=== PATIENT | male | born 1935 | race Caucasian/White ===

== ENCOUNTER 2017-01-14 01:35 | Inpatient (IN) | payer MEDICARE, BC ==
[~2017-01-14] VITALS: Ht 175.3 cm; Wt 78.9 kg
[~2017-01-14 01:35] MED LIST: ASCO1TAB4 PO; ATOR10TA9 PO; ATOR20TA9 PO; CHOL20002 PO; DIGO125T PO; DIGO125T6 PO; DILT180C72 PO; FINA1TAB16 PO; FINA5TAB4 PO; FURO20TA3 PO; HYDR-882 PO; HYDR25TA6 PO; ISOS30TA8 PO; LEVO25TA4 PO; MECL-76 PO; METO-95 PO; METO25TA4 PO; NITR0.4T8 SL; ONDA4TAB13 SL; PANT40TA3 PO; RABE20TA26 PO; RIVA10TA PO; RIVA20TA PO; TAMS-11 PO; TAMS0.4C2 PO; TRAM50TA2 PO; potassium PO
[2017-01-14] MEDS ORDERED: SODIUM CHLORIDE FLUSH 10ML SYR IVF ONE (02:00)
[2017-01-14 02:16] LABS: ASPARTATE AMINO TRANSFERASE 23 U/L (15-37); BLOOD UREA NITROGEN 21 mg/dL (7-18)
[2017-01-14 02:28] LABS: IS PT STATUS REG ER OR PRE ER? YES
[2017-01-14] MEDS ORDERED: CYCL5TAB PO (03:09)
[2017-01-14] MEDS ORDERED: [UNRECOGNIZED DRUG - CODE] IM (03:09)
[2017-01-14] MEDS ORDERED: PNEU0.5D PO (03:09)
[2017-01-14] MEDS ORDERED: FAMOTIDINE 20 MG/2 ML ONE (03:21)
[2017-01-14] MEDS ORDERED: MAALOX/HYOSCYAMINE/LIDOCAINE 45 ML BOTTLE ONE (03:21)
[2017-01-14] MEDS ORDERED: FAMOTIDINE 20 MG/2 ML IVP ONE (03:30)
[2017-01-14] MEDS ORDERED: MAALOX/HYOSCYAMINE/LIDOCAINE 45 ML BOTTLE PO ONE (03:30)
[2017-01-14 05:33] VITALS: BP 162/95
[2017-01-14] MEDS ORDERED: NITROGLYCERIN 0.4 MG BOTTLE (25 TABS) SL SCH (06:00)
[2017-01-14] MEDS ORDERED: ACETAMINOPHEN 325 MG TABLET PO PRN (06:00)
[2017-01-14] MEDS ORDERED: ONDANSETRON 2MG/ML, 2ML IVPush PRN (06:00)
[2017-01-14] MEDS ORDERED: hydrALAzine 20 MG/ML, 1ML IVPush PRN (06:00)
[2017-01-14] MEDS ORDERED: TRAZODONE 50MG TABLET PO PRN (06:00)
[2017-01-14] MEDS ORDERED: BISACODYL 10 MG SUPP PR PRN (06:00)
[2017-01-14] MEDS ORDERED: DOCUSATE 100 MG CAPSULE PO PRN (06:00)
[2017-01-14] MEDS ORDERED: POLYETHYLENE GLYCOL 17 GM PACKET PO PRN (06:00)
[2017-01-14] MEDS ORDERED: NITROGLYCERIN 0.4 MG BOTTLE (25 TABS) SL PRN (06:06)
[2017-01-14] MEDS: CYCLOBENZAPRINE 10 MG TABLET PO SCH ×3 (08:21→20:59)
[2017-01-14] MEDS: DILTIAZEM CD 180 MG CAP.ER.24H PO SCH (08:21)
[2017-01-14] MEDS: TAMSULOSIN 0.4 MG CAP.ER.24H PO SCH (08:22)
[2017-01-14] MEDS: ISOSORBIDE MONONITRATE ER 30 MG TABLET PO SCH (08:22)
[2017-01-14] MEDS: FUROSEMIDE 20 MG TABLET PO SCH (08:22)
[2017-01-14] MEDS: PANTOPROZOLE 40MG TABLET PO SCH ×2 (08:23→20:58)
[2017-01-14] MEDS: LEVOTHYROXINE 25 MCG TABLET PO SCH ×2 (08:23→08:27)
[2017-01-14] MEDS: FINASTERIDE 5 MG TABLET PO SCH (08:23)
[2017-01-14] MEDS: METOPROLOL SUCCINATE 50 MG TAB.ER.24H PO SCH (08:24)
[2017-01-14] MEDS: CHOLECALCIFEROL 1,000 UNIT TABLET PO SCH (08:24)
[2017-01-14] MEDS: CALCIUM CARBONATE 500 MG TAB.CHEW PO SCH ×2 (08:24→20:58)
[2017-01-14 08:51] VITALS: BP 145/76
[2017-01-14] MEDS ORDERED: DIGOXIN 0.125 MG TABLET PO SCH (09:00)
[2017-01-14 09:16] LABS: IS PT STATUS REG ER OR PRE ER? NO
[2017-01-14] MEDS: ASCORBIC ACID 500 MG TABLET PO SCH (12:39)
[2017-01-14] MEDS: ASPIRIN 81 MG TABLET EC PO SCH (12:39)
[2017-01-14 13:07] VITALS: BP 92/58
[2017-01-14 15:21] LABS: IS PT STATUS REG ER OR PRE ER? NO
[2017-01-14] MEDS ORDERED: RIVAROXABAN 20 MG TABLET PO SCH (16:30)
[2017-01-14] MEDS ORDERED: SODIUM CHLORIDE 0.9% 1,000 ML IV ONE (17:13)
[2017-01-14 19:51] VITALS: BP 117/69
[2017-01-14] MEDS: ATORVASTATIN 80 MG TABLET PO SCH (21:00)
[2017-01-14] MEDS ORDERED: ATORVASTATIN 20 MG TABLET PO SCH (21:00)
[2017-01-15] VITALS (7 sets, daily range): BP systolic 101–154; BP diastolic 63–88
[2017-01-15 05:42] LABS: BLOOD UREA NITROGEN 20 mg/dL (7-18)
[2017-01-15 05:46] LABS: ASPARTATE AMINO TRANSFERASE 20 U/L (15-37)
[2017-01-15] MEDS: ASPIRIN 81 MG TABLET EC PO SCH (06:00)
[2017-01-15] MEDS: ISOSORBIDE MONONITRATE ER 30 MG TABLET PO SCH (08:39)
[2017-01-15] MEDS: CYCLOBENZAPRINE 10 MG TABLET PO SCH ×3 (08:40→22:14)
[2017-01-15] MEDS: DILTIAZEM CD 180 MG CAP.ER.24H PO SCH (08:40)
[2017-01-15] MEDS: FUROSEMIDE 20 MG TABLET PO SCH (08:40)
[2017-01-15] MEDS: TAMSULOSIN 0.4 MG CAP.ER.24H PO SCH (09:00)
[2017-01-15] MEDS: CALCIUM CARBONATE 500 MG TAB.CHEW PO SCH ×2 (09:00→22:12)
[2017-01-15] MEDS: CHOLECALCIFEROL 1,000 UNIT TABLET PO SCH (09:00)
[2017-01-15] MEDS: PANTOPROZOLE 40MG TABLET PO SCH ×2 (09:00→22:12)
[2017-01-15] MEDS: ASCORBIC ACID 500 MG TABLET PO SCH (09:00)
[2017-01-15] MEDS: METOPROLOL SUCCINATE 50 MG TAB.ER.24H PO SCH (09:29)
[2017-01-15] MEDS ORDERED: VERAPAMIL 2.5 MG/ML, 2ML ONE ×3 (15:05→16:51)
[2017-01-15] MEDS ORDERED: MIDAZOLAM 1 MG/ML, 5ML ONE (15:05)
[2017-01-15] MEDS ORDERED: FENTANYL PF 100 MCG/2ML ONE (15:05)
[2017-01-15] MEDS ORDERED: LIDOCAINE 2%, 20ML ONE (15:06)
[2017-01-15] MEDS ORDERED: BIVALIRUDIN 250 MG ONE (15:06)
[2017-01-15] MEDS ORDERED: TICAGRELOR 90 MG TABLET ONE (15:06)
[2017-01-15] MEDS ORDERED: HEPARIN 1,000 UNITS/ML, 10ML ONE (15:06)
[2017-01-15] MEDS ORDERED: FENTANYL PF 250 MCG/5ML ONE (16:39)
[2017-01-15] MEDS: LEVOTHYROXINE 25 MCG TABLET PO SCH (17:08)
[2017-01-15] MEDS: SODIUM CHLORIDE 0.9% 1,000 ML IV SCH (17:50)
[2017-01-15] MEDS: FINASTERIDE 5 MG TABLET PO SCH (22:12)
[2017-01-15] MEDS: ATORVASTATIN 80 MG TABLET PO SCH (22:12)
[2017-01-16 00:19] VITALS: BP 147/71
[2017-01-16] MEDS: ASPIRIN 81 MG TABLET EC PO SCH (05:07)
[2017-01-16] MEDS: SODIUM CHLORIDE 0.9% 1,000 ML IV SCH ×2 (06:56→09:15)
[2017-01-16 07:24] LABS: BLOOD UREA NITROGEN 15 mg/dL (7-18)
[2017-01-16 07:44] VITALS: BP 127/73
[2017-01-16] MEDS: CALCIUM CARBONATE 500 MG TAB.CHEW PO SCH (09:00)
[2017-01-16] MEDS: LEVOTHYROXINE 25 MCG TABLET PO SCH (09:00)
[2017-01-16] MEDS: CYCLOBENZAPRINE 10 MG TABLET PO SCH (09:42)
[2017-01-16] MEDS: PANTOPROZOLE 40MG TABLET PO SCH (09:42)
[2017-01-16] MEDS: TAMSULOSIN 0.4 MG CAP.ER.24H PO SCH (09:43)
[2017-01-16] MEDS: CHOLECALCIFEROL 1,000 UNIT TABLET PO SCH (09:43)
[2017-01-16] MEDS: METOPROLOL SUCCINATE 50 MG TAB.ER.24H PO SCH (09:44)
[2017-01-16] MEDS: ASCORBIC ACID 500 MG TABLET PO SCH (09:44)
[2017-01-16] MEDS: FUROSEMIDE 20 MG TABLET PO SCH (09:45)
[2017-01-16] MEDS: ISOSORBIDE MONONITRATE ER 30 MG TABLET PO SCH (09:45)
[2017-01-16] MEDS: DILTIAZEM CD 180 MG CAP.ER.24H PO SCH (09:45)
[2017-01-16] MEDS: FINASTERIDE 5 MG TABLET PO SCH (09:45)
[2017-01-16] MEDS ORDERED: PANT40TA3 PO (10:28)
[2017-01-16] MEDS ORDERED: ASPI-621 PO (14:32)
[2017-01-16] MEDS ORDERED: RIVAROXABAN 20 MG TABLET PO SCH (17:00)
== END 2017-01-16 13:15 | disposition home or self-care (01) | DRG 281 ==
LOC: ED 02:45 → EDIP 04:10 → INTOOBSV 04:10 → 5SO 05:28 → OBSVTOIN 14:24
PROVIDERS: ADMIT Internal Medicine; ATTEND Internal Medicine
PROC: 4A023N7 Measurement of Cardiac Sampling and Pressure, Left Heart, Percutaneous Approach (ICD-10-PCS; principal; 2017-01-15)
PROC: B2111ZZ Fluoroscopy of Multiple Coronary Arteries using Low Osmolar Contrast (ICD-10-PCS; 2017-01-15)
PROC: B2181ZZ Fluoroscopy of Left Internal Mammary Bypass Graft using Low Osmolar Contrast (ICD-10-PCS; 2017-01-15)
PROC: B2151ZZ Fluoroscopy of Left Heart using Low Osmolar Contrast (ICD-10-PCS; 2017-01-15)
PROC: B2131ZZ Fluoroscopy of Multiple Coronary Artery Bypass Grafts using Low Osmolar Contrast (ICD-10-PCS; 2017-01-15)
DX: I21.4 Non-ST elevation (NSTEMI) myocardial infarction (principal); J98.11 Atelectasis; D68.59 Other primary thrombophilia; E44.1 Mild protein-calorie malnutrition; K21.9 Gastro-esophageal reflux disease without esophagitis; I25.10 Atherosclerotic heart disease of native coronary artery without angina pectoris; I10 Essential (primary) hypertension; I48.2 Chronic atrial fibrillation; I73.9 Peripheral vascular disease, unspecified; E03.9 Hypothyroidism, unspecified; E78.2 Mixed hyperlipidemia; I08.2 Rheumatic disorders of both aortic and tricuspid valves; N40.0 Benign prostatic hyperplasia without lower urinary tract symptoms; Z79.01 Long term (current) use of anticoagulants; Z79.82 Long term (current) use of aspirin; Z82.49 Family history of ischemic heart disease and other diseases of the circulatory system; Z86.74 Personal history of sudden cardiac arrest; Z87.891 Personal history of nicotine dependence; Z79.899 Other long term (current) drug therapy; Z95.1 Presence of aortocoronary bypass graft; Z88.0 Allergy status to penicillin
CPT/HCPCS: 36415; 71020; 75605; 75625; 80048; 80053; 80061; 82040; 83880; 84443; 84481; 84484; 85025; 85610; 85730; 93005; 93306; 93459; 99156; 99157; 99285; C1894; G0378; J0583; J1644; J2250; J3010; J3490; C1887; J7030; Q9967; S0028

== ENCOUNTER → 2020-01-19 | Outpatient (CLI) | payer MEDICARE, BC ==
[~2020-01-19] MED LIST changes: +ASPI81TA45 PO; +ATOR20TA37 PO; -ATOR20TA9 PO; -CHOL20002 PO; +CHOL200052 PO; +CYCL5TAB PO; -DIGO125T PO; -DIGO125T6 PO; +DIGO125T81 PO; +DIGO125T85 PO; +DILT180C53 PO; +FURO40TA6 PO; +HYDR-3653 PO; -HYDR-882 PO; +METO200T47 PO; +NITR0.4T28 SL; -NITR0.4T8 SL; +PNEU0.5D PO; +POTA20TA6 PO; -RIVA10TA PO; +RIVA10TA2 PO; +SPIR25TA5 PO; +[UNRECOGNIZED DRUG - CODE] IM
[2020-01-19 12:57] LABS: ANION GAP 7 mmol/L (5-15); CHLORIDE 95 mmol/L (98-107); CREATININE 0.66 mg/dL (0.7-1.3)
== END | disposition home or self-care (01) ==
LOC: EDBD 09:11 → LAB 09:11
PROVIDERS: ATTEND Internal Medicine
DX: E87.1 Hypo-osmolality and hyponatremia (principal); I10 Essential (primary) hypertension
CPT/HCPCS: 36415; 80048